=== PATIENT | female | born 1970 | race Caucasian/White ===

== ENCOUNTER → 2019-01-15 | Outpatient (CLI) | payer BC ==
--- NOTE | 2019-01-19 16:36 | RADIOLOGY IMAGING REPORT ---
[facility] PATIENT NAME: ISAEL LARES : [id number] MR: [id number] V: [id number] EXAM DATE: [id number] ORDERING PHYSICIAN: LOTTIE LOWERY TECHNOLOGIST: Carmen Cohn PROCEDURE: BILATERAL DIGITAL SCREENING MAMMOGRAM WITH CAD ASSISTED INTERPRETATION & 3D TOMOSYNTHESIS REASON FOR STUDY: Screening FAMILY HISTORY OF BREAST CANCER: None BREAST PROCEDURES/TREATMENTS: None COMPARISON: None VIEWS OBTAINED: Bilateral 2D & 3D full field CC & MLO projections BREAST DENSITY: hetero MAMMOGRAM FINDINGS: There is a focal asymmetry in the lateral portion of the Right breast on the Right CC view best appreciated on tomographic slice #32 for which spot compression view is recommended. IMPRESSION: BIRADS 0: Incomplete, need additional imaging evaluation. Additional views of the Right breast recommended & possibly Right breast Ultrasound depending upon the additional imaging findings. DIAGNOSTIC CATEGORY 0--INCOMPLETE: NEED ADDITIONAL IMAGING EVALUATION. RECOMMENDATIONS: ADDITIONAL MAMMOGRAPHIC VIEWS REQUIRED: RIGHT BREAST. Dictated by: Kristin Arthur M.D. on 01/15/2019 at 15:16 Transcribed by: BRIAN on 01/16/2019 at 11:04 Approved by: Weston Tinoco on 01/19/2019 at 16:34 [facility]
== END ==
LOC: MAMO 10:48
PROVIDERS: ATTEND Nurse Practitioner Psychiatric/Mental Health
DX: R92.2 Inconclusive mammogram (principal)
CPT/HCPCS: 77063; 77067

== ENCOUNTER → 2019-01-16 | Outpatient (CLI) | payer BC ==
--- NOTE | 2019-01-16 11:37 | RADIOLOGY IMAGING REPORT ---
FACILITY: [facility] PATIENT NAME: Minna Cesar : 1970 MR: [id number] V: [id number] EXAM DATE: ORDERING PHYSICIAN: LOTTIE LOWERY TECHNOLOGIST: Location: [facility] Patient: Minna Cesar : 1970 Visit/Account:[id number] Date of Sevice: 01/16/2019 Chest 2 views: HISTORY: Chest pain and shortness of breath. COMPARISON: None. FINDINGS: Frontal and lateral chest: Cardiomediastinal silhouette is within normal limits. There is no infiltrate or pleural effusion. No pneumothorax. Pulmonary vasculature is normal. Osseous structures are unremarkable for age. IMPRESSION: No evidence of acute cardiopulmonary abnormality. Report Dictated By: Luz Marina Anna MD at 01/16/2019 11:31 AM Report E-Signed By: Luz Marina Anna MD at 01/16/2019 11:32 AM WSN:[email or web address]
== END ==
LOC: RAD 10:31
PROVIDERS: ATTEND Nurse Practitioner Psychiatric/Mental Health
DX: R07.9 Chest pain, unspecified (principal)
CPT/HCPCS: 71046

== ENCOUNTER 2019-03-04 00:59 | Observation (INO) | payer BC ==
[2019-03-04] VITALS (12 sets, daily range): BP systolic 72–124; BP diastolic 42–75
[~2019-03-04] VITALS: Ht 162.6 cm; Wt 109.8 kg
[~2019-03-04 00:59] MED LIST: ACET-2146 PO; FENO160T11 PO; FEXO180T87 PO; FLUT16SP19 NS; LACT1CAP6 PO; MULT1CAP59 PO; OMEG-11 PO; RANI-54 PO; SERT-181 PO
[2019-03-04] MEDS ORDERED: PROPOFOL EMUL(*) 10MG/ML 20 ML 20 ML ONE (07:47)
[2019-03-04] MEDS ORDERED: METOCLOPRAMIDE 10 MG/2 ML SDV ONE (07:47)
[2019-03-04] MEDS ORDERED: LIDOCAINE MPF 1% 5 ML VIAL ONE (07:47)
[2019-03-04] MEDS ORDERED: DEXAMETHASONE SOD 4 MG/ML VIAL ONE (07:47)
[2019-03-04] MEDS ORDERED: ROCURONIUM BROM 10 MG/ML 10 ML ONE (07:47)
[2019-03-04] MEDS ORDERED: ONDANSETRON 4 MG/2 ML VIAL ONE (07:47)
[2019-03-04] MEDS ORDERED: SUGAMMADEX SOD 200 MG/2 ML SDV ONE (07:52)
[2019-03-04] MEDS ORDERED: fentaNYL CITR 250 MCG/5 ML AMP ONE (07:53)
[2019-03-04] MEDS ORDERED: cefOXitin/DEX(*) 2GM/50ML PREM 50 ML IVPB ONE (08:05)
[2019-03-04] MEDS: NORMOSOL R SOLN(*) 1000 ML BAG 1,000 ML IV PRN ×2 (08:15→14:00)
[2019-03-04 08:52] LABS: PLATELET COUNT, AUTOMATED 266 K/uL (150-450)
[2019-03-04] MEDS ORDERED: MIDAZOLAM 2 MG/2 ML VIAL IVP PRN (09:30)
[2019-03-04] MEDS ORDERED: LIDOCAINE/SOD BICARB 8.4% SYR ID ONE (09:30)
[2019-03-04] MEDS ORDERED: MANNITOL* (20%)100 GM/500ML BG 500 ML IVPB ONE (09:40)
[2019-03-04] MEDS ORDERED: ROPIVACAINE 0.2% 20 ML VIAL ONE (09:41)
[2019-03-04] MEDS ORDERED: NS(*) 0.9% 250 ML BAG 250 ML ONE (09:41)
[2019-03-04] MEDS ORDERED: ESTROGENS CONJ VAG CREAM 30 GM TUBE PV ONE (09:41)
[2019-03-04] MEDS ORDERED: ACETAMINOPHEN(*)1000 MG/100 ML 100 ML IVPB ONE (09:43)
[2019-03-04] MEDS ORDERED: VASOPRESSIN 20 UNIT/ML VIAL ONE (09:44)
[2019-03-04] MEDS ORDERED: fentaNYL CITR 100 MCG/2 ML AMP ONE ×3 (12:10→13:43)
[2019-03-04] MEDS ORDERED: ONDANSETRON 4 MG/2 ML VIAL IV PRN (13:25)
[2019-03-04] MEDS ORDERED: ACETAMINOPHEN 325 MG TAB PO PRN (13:25)
[2019-03-04] MEDS ORDERED: PROMETHAZINE 25 MG/ML 1 ML AMP IVP PRN (13:25)
[2019-03-04] MEDS ORDERED: DOCU240C67 PO (13:25)
[2019-03-04] MEDS ORDERED: SIMETHICONE 80 MG CHEW CHEW PRN (13:25)
[2019-03-04] MEDS ORDERED: HYDROmorphone HCL 2 MG TAB PO PRN (13:25)
[2019-03-04] MEDS ORDERED: IBUP800T37 PO (13:25)
[2019-03-04] MEDS ORDERED: OXYC-865 PO (13:25)
[2019-03-04] MEDS ORDERED: INFLUENZA VIRUS VAC 0.5ML SYR IM ONE (13:25)
[2019-03-04] MEDS ORDERED: ESTRADIOL 0.1 MG/24 HR TDSY TD SCH (13:30)
--- NOTE | 2019-03-04 13:47 | Post Operative Note ---
Operative Note - CARDIOTHORACIC ICU RN Operative Day Date: Mar 04, 2019 Time: 13:45 Physicians Surgeon: Ladan Patient Centered Care Specialist: Sherie Sims Anesthesia: GETA Diagnosis Pre-Op Diagnosis: Menorrhagia Metrorrhagia Ovarian cyst rectocele YUDI Post-Op Diagnosis: Menorrhagia Metrorrhagia Right hydatid cyst of morgagni rectocele YUDI Procedure Procedure(s): RATLH BSO Cystectomy Posterior colporrhaphy Cystoscopy TO sling Specimen Removed:(Maybe N/A): uterus, tubes, ovaries, cyst Complications: [id number] Fluids Fluids: 1900 ml Estimated Blood Loss: 200 ml Dictated Date OP Note Dictated: Mar 04, 2019 Time OP Note Dictated: 13:47 Copies to: MAURIZIO ARROYO MD ; MAURIZIO ARROYO MD Mar 04, 2019 13:47
[2019-03-04] MEDS ORDERED: KETOROLAC 30 MG/ML VIAL ONE (14:24)
--- NOTE | 2019-03-04 15:07 | OPERATIVE REPORT 1 ---
EVENT DATE: March 04, 2019 SURGEON: Melvin Pickering MD ANESTHESIOLOGIST: Jeferson Yeboah MD ANESTHESIA: General endotracheal. SEMICONDUCTOR TESTING GROUP LEADER: YOLANDA Flores PREOPERATIVE DIAGNOSES 1. Excessive infrequent menstruation with irregular cycle. 2. Menorrhagia. 3. Unspecified ovarian cyst. 4. Stress urinary incontinence. 5. Rectocele. 6. Perineocele. POSTOPERATIVE DIAGNOSES 1. Excessive infrequent menstruation with irregular cycle. 2. Menorrhagia. 3. Right adnexal hydatid cyst of Morgagni. 4. Stress urinary incontinence. 5. Rectocele. 6. Endometriosis. PROCEDURES PERFORMED 1. Robotic-assisted total laparoscopic hysterectomy. 2. Bilateral salpingo-oophorectomy. 3. Modified Short's culdoplasty. 4. Diagnostic cystoscopy. 5. Posterior colporrhaphy. 6. Perineoplasty. 7. Transobturator mid urethropexy. ESTIMATED BLOOD LOSS 200 cc. IV FLUIDS 1900 cc IV crystalloid. FINDINGS Upon inspecting the pelvis, the uterus was positioned anterior to a large cyst below. The left ovary and tube were visible and appeared normal. Therefore, this was deemed to be a right adnexal cyst. It was not clear, however, whether it was an ovarian cyst or otherwise. Although it had the initial appearance of a paratubal cyst or a hydatid cyst of Morgagni. It had a thin translucent surface membrane that was clearly visible in the pelvis. Therefore, a needle aspirator was used to drain the cyst and after the cyst had been drained it was clearly evident it was a hydatid cyst of Morgagni and the right ovary appeared normal. There was endometriosis noted in the posterior cul-de-sac. DESCRIPTION OF PROCEDURE Patient was brought to the operating room with a working IV, placed in the dorsal supine position on the operating table. She was placed under general endotracheal anesthesia and moved to the dorsal lithotomy position. She was then prepped and draped in the usual sterile fashion. A weighted speculum was placed in the vagina. The cervix was visualized and grasped on the anterior lip with a single-tooth tenaculum. It was sounded to a depth of 14 cm and the cervix was dilated in order to accommodate a large VCare uterine manipulator. It was passed through the cervix into the uterus, bulb inflated and secured and the VCare cup was sutured to the cervix. The NuMo cup was approximated against the VCare cup and secured. Herbert catheter was placed in the bladder to dependent drainage. The legs were brought back to the supine position and gloves were changed. We proceeded laparoscopically by measuring above the target anatomy, which ended up being 3 cm cephalad to the umbilicus. This area was marked, infiltrated with 0.2% Naropin and an 8 mm stab incision was made. Veress needle was passed through this incision into the abdomen and pneumoperitoneum was created to an intraabdominal pressure of 20 mmHg. This was reduced to 15 mmHg. Once all ports were had been placed, the Veress needle was removed. An 8 mm bladeless trocar was passed through this incision into the abdomen while elevating and stabilizing the anterior abdominal wall. Four additional ports were placed, two left lateral and two right lateral to the umbilical port as follows, all spaced 8 cm apart and under similar technique and under direct visualization. There was an rehabilitation assistant port left lateral and a robotic port followed by two robotic ports to the right of the umbilical port. The patient was moved to the steep Trendelenburg position and bowel was swept out of the abdomen with a blunt grasper. The abdomen and pelvis were surveyed with the above findings noted. The needle aspirator was connected to suction, passed through the most left lateral port to the cystic mass and punctured into the cystic mass. A clear fluid was suctioned out and continued to be suctioned out for a total volume of 800 cc before the cyst had been completely evacuated. The needle was then removed. Further manipulation revealed the right ovary normal in appearance and this paratubal cyst beneath the right tube. Therefore, all instruments were removed and the robot was brought overlying the patient. The umbilical port was docked. The camera was placed and a targeting procedure was completed. All additional arms were docked and instruments were attached and brought into the abdomen under direct visualization with the scope. Once this setup had been completed, I scrubbed out and presented to the console for the procedure, which proceeded as follows: The right tube and ovary was put on elevated and medial stretch, exposing the IP ligament. The ureter was observed well below this area and, therefore, the IP ligament was doubly cauterized and transected with a vessel sealer. Continued dissection through the pelvic connection of the right adnexa up to the uteroovarian ligament was performed. The round ligament was then cauterized and transected at this point entering the broad ligament, which was in the anterior and posterior leaflets. The anterior leaflet was dissected over the cervix and the VCare cup to the contralateral side. Further dissection and skeletonization of the uterine vessels were performed anteriorly followed by posterior skeletonization by taking the peritoneum down to the uterosacral ligament. Once the vessels were visible, the uterine vasculature was cauterized in a perpendicular fashion x2 and transected with the vessel sealer. Parallel bites along the lateral uterus was then performed down to and overlying the VCare cup. The same procedure was followed on the contralateral side in likewise fashion, elevating and exposing the IP ligament, which was doubly cauterized and transected with the vessel sealer, dissecting the left adnexa away from its pelvic connection up to the uterosacral ligament and cauterizing and transecting the round ligament entering the broad. Broad ligament was then into the anterior and posterior leaflets and the anterior dissection was completed followed by posterior skeletonization of the uterine vasculature. Uterine vessels on the left were then cauterized perpendicularly x2 and transected followed by parallel bites along the lateral uterus down to and overlying the VCare cup. An anterior colpotomy was performed, identifying the VCare cup and this was extended circumferentially through the uterosacral ligaments bilaterally to the contralateral side. This released the uterus and it was removed with both adnexa intact through the vagina. A few capillary bleeders were cauterized and then instruments were changed for suturing. An 0 Vicryl was then used to suture ligate the right angle to the ipsilateral uterosacral ligament in a [id number] fashion. Same procedure was followed on the contralateral side. The vaginal cuff was then repaired using 2-0 V-Loc stitch in a running nonlocking fashion with an excellent result. There was hemostasis and excellent reapproximation of the skin edges achieved. No visible complications. No bleeders. All instruments were removed from the abdomen and pneumoperitoneum was suctioned out. Skin incisions were repaired with 4-0 Monocryl simple subdermal and covered with Dermabond skin adhesive. The legs were brought back to the supine position and I scrubbed back into the procedure. A weighted speculum was placed in the vagina and the vaginal repair was inspected and found to be intact. Therefore, the rectocele was inspected and there was significant obstetrical scarring at the vaginal introitus with significant dimpling of this tissue at the vaginal opening inwards towards the perineum. There is some redundant tissue on the perineal body extending to the anus and a midline rectocele was prominent. The area was demarcated and infiltrated with a dilute Pitressin solution and a yaron-shaped resection of the vaginal introital skin followed by the perineal skin and up to the vaginal mucosa was performed. A linear incision along the length of the defect was also performed and then careful dissection laterally to the endopelvic fascia was performed to expose the rectocele defect. The perineal body also was transected in order to be rebuilt later. A running pursestring stitch was then performed on the rectocele defect in order to reduce its size followed by Meghan plication stitches along its entire length, which significantly reduced the defect. A finger was inserted rectally and I palpated for further defects and several site specific repairs were performed where there was palpable weakness in the pelvis fascia. Once completed, gloves were changed. Excess vaginal tissue was trimmed away. The repair was then performed with 2-0 Vicryl in a running locking stitch up to the vaginal introitus. The remaining perineal body was rebuilt by suture ligating the scar tissue laterally towards the midline in order to rebuild the perineal body and to have taken away the dimpling noted in that location. Once that had been adequately performed, the remaining repair was performed as is typical for a second-degree obstetrical repair with excellent closure of the skin edges, excellent strength and integrity and width of the perineal body was achieved. At this point, a weighted speculum was again placed in the vagina. The legs were brought back down to a 45-degree angle and we prepared for the sling procedure. The transobturator fossa was palpable extracorporeally and samaniego were made on the groin at the level of the clitoris. The mid urethra was palpated with the assistance of the Herbert and grasped between two Allis clamps. A linear incision was made along the length of the mid urethra and then dissected laterally with the assistance of a tenotomy and scissor angled 45- degrees towards the transobturator fossa. This was performed on both sides, having adequately dissected laterally from the mid urethra. A finger was then passed to further bluntly dissect to the transobturator membrane, which was palpable beneath on the posterior side. A sling hook was then passed first vertically through the groin to the transobturator membrane and then rotated to a 45-degree angle to complete its travel to the vagina, where the incision had been performed. The sling was attached to this hook and drawn back through, leaving the blue introducer intracorporeal. Same procedure was followed on the contralateral side. Herbert catheter was removed. Diagnostic cystoscopy was performed. The entire bladder was inspected and found to be without injury. Both ureters exhibited excellent urine jets. Therefore, the cystoscopy was completed. Herbert catheter was replaced and sling material was grasped at the midline with a Luisito clamp, taking approximately 1 cm of looped sling. This was approximated against the mid urethra while slack was taken out on both sides. Once this had been adequately spaced, the sleeves of the sling material were removed and the remaining sling material was trimmed at the groin. I was easily able to pass a curved Potts scissor beneath the sling material. Therefore, the vaginal mucosa was repaired with a 2-0 Vicryl in a running locking stitch. There was excellent hemostasis upon completion. The vagina was irrigated and suctioned dry. The entire vagina was packed with a Kerlix sponge moistened with Premarin cream. Puncture incisions were covered with Dermabond skin adhesive. She tolerated the procedure well. Sponge, lap, needle and instrument counts were all correct x3. She was taken to recovery in stable condition. LORI
[2019-03-04] MEDS: oxyCODON/ACET (*)5/325MG (CII) 1 TAB TAB PO PRN ×2 (16:04→23:33)
[2019-03-04] MEDS: DLR(*) 1000 ML BAG 1,000 ML IV PRN ×2 (16:06→21:30)
[2019-03-04] MEDS: KETOROLAC 30 MG/ML VIAL IVP SCH (18:49)
[2019-03-04] MEDS: RANITIDINE HCL 150 MG TAB PO SCH (21:00)
[2019-03-04] MEDS ORDERED: ZOLPIDEM TARTRATE 10 MG TAB PO PRN (21:00)
[2019-03-04] MEDS: DOCUSATE CALCIUM 240 MG CAP PO SCH (21:01)
[2019-03-04] MEDS: FAMOTIDINE 20 MG TAB PO SCH (21:01)
[2019-03-05] MEDS: KETOROLAC 30 MG/ML VIAL IVP SCH (01:48)
[2019-03-05 03:51] VITALS: BP 89/51
[2019-03-05 06:22] LABS: PLATELET COUNT, AUTOMATED 200 K/uL (150-450)
[2019-03-05 08:15] VITALS: BP 85/58
[2019-03-05] MEDS: FAMOTIDINE 20 MG TAB PO SCH (08:33)
[2019-03-05] MEDS: RANITIDINE HCL 150 MG TAB PO SCH (08:33)
[2019-03-05] MEDS: oxyCODON/ACET (*)5/325MG (CII) 1 TAB TAB PO PRN (08:33)
[2019-03-05] MEDS ORDERED: SERTRALINE HCL 50 MG TAB PO SCH (09:00)
[2019-03-05] MEDS: DOCUSATE CALCIUM 240 MG CAP PO SCH (09:00)
[2019-03-05] MEDS ORDERED: FEXOFENADINE HCL 60 MG TAB PO SCH (09:00)
[2019-03-05] MEDS ORDERED: FENOFIBRATE,MICRON 145 MG TAB PO SCH (09:00)
[2019-03-05 10:14] VITALS: Ht 162.6 cm; Wt 109.8 kg
[2019-03-05 11:38] VITALS: BP 108/50
[2019-03-05] MEDS ORDERED: ESTR1PAT99 TD (12:28)
[2019-03-05] MEDS ORDERED: IBUPROFEN 800 MG TAB PO PRN (13:00)
--- NOTE | 2019-03-05 13:06 | OB/GYN Progress Note ---
OB Subjective Progress Notes Subjective Doing well POD #1 s/p RATLH, posterior colporrhaphy and TO sling. Needing some O2 this morning. Scant vaginal bleeding packing and lee still present during visit. Tolerating PO, no nausea/vomiting. Not passing flatus yet. Dip in Hgb 12 to 9 post-op, tolerating. GI: NEG Nausea, NEG Vomiting, NEG Flatus : Vaginal Bleeding, Scant Pain: Moderate, Tolerating PO Pain Meds OB Objective Physical Exam Vital Signs Date Time Temp Pulse Resp B/P (MAP) Pulse Ox O2 Delivery O2 Flow Rate FiO2 03/05/19 11:38 98.5 78 17 108/50 (69) 93 Room Air 03/05/19 08:15 1.0 Intake and Output 03/05/19 07:03 Intake Total 5848 ml Output Total 3150 ml Balance 2698 ml Intake Oral 1850 ml IV Total 1900 ml Other 2098 ml Output Urine Total 2950 ml Estimated Blood Loss 200 ml General Appearance: Alert/Awake/No Acute Distress Neurological: No Gross deficits Cardiovascular: Normal Rhythm & Peripheral Pulses Respiratory: No Respiratory Distress Abdomen: Other (Hypoactive bowel sounds. Soft, non-distended. 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 Will remove Lee this morning and rate second stream, nursing will check post void residual. If stream is >50% of previous and post void is <150cc will d/c home today. Her pain is well c ontrolled, discussed post-op care. Follow-up with Dr. Pickering in 2 weeks. GOLDY FELIX Mar 05, 2019 13:06
--- NOTE | 2019-03-05 13:11 | OB/GYN Discharge Summary ---
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 Her pain is well controlled, discussed post-op care. Climara patch started for hormone replacement. Follow-up with Dr. Pickering in 2 weeks. Lates Vital Signs Vital Signs Date Time Temp Pulse Resp B/P (MAP) Pulse Ox O2 Delivery O2 Flow Rate FiO2 03/05/19 11:38 98.5 78 17 108/50 (69) 93 Room Air 03/05/19 08:15 1.0 Weight (Pounds): 242 Result Diagram: 03/05/19 0544 Condition: Improved Discharge: Home, Self Snf Meds Active Scripts Oxycodone Hcl/Acetaminophen (PERCOCET 5-325 MG TABLET) 1 Each Tablet, 1 EACH PO Q4-6H PRN for PAIN, #20 TAB 0 Refills TAKE 1 TABLET NEEDED FOR PAIN - NO CLOSER THAN EVERY 4-6 HOURS. Prov:GOLDY FELIX 03/04/19 Reported Medications Ranitidine Hcl (ZANTAC) 150 Mg Tablet, 300 MG PO BID, TAB 02/26/19 Lactobacillus Combination No.4 (PROBIOTIC) 1 Each Capsule, 1 EACH PO QDAY, CAPSULE 02/26/19 Acetaminophen 500 Mg Tab (ACETAMINOPHEN EXTRA STRENGTH) 500 Mg Tablet, 500 MG PO Q4-6H PRN for PAIN, TAB 02/26/19 Multivitamin (MULTIVITAMINS) 1 Each Capsule, 1 EACH PO QDAY, CAPSULE 02/26/19 Fexofenadine Hcl (FEXOFENADINE HCL) 180 Mg Tablet, 180 MG PO QDAY 02/26/19 [place]-3 Fatty Acids/Fish Oil (FISH OIL 1,000 MG CAPSULE) 1 Each Capsule, 1 EACH PO QDAY, CAPSULE 02/26/19 Fluticasone Prop 50 Mcg Ns (FLONASE 50 MCG NS) 16 Gm [place].susp, 1 SPRAY NS BID, BOT 02/26/19 Fenofibrate (FENOFIBRATE) 160 Mg Tablet, 160 MG PO QDAY 02/26/19 Sertraline Hcl (SERTRALINE HCL) 100 Mg Tablet, 1 TAB PO QDAY, TAB 02/26/19 Follow up with: Dr. Pickering [phone] Follow up in: 2 wks PO Discharge Diet: As Tolerates Discharge Activity: No Heavy Lifting x 6 wks, Pelvic Rest Special Instructions: No driving on narcotic pain medication. GOLDY FELIX Mar 05, 2019 13:11
== END 2019-03-05 13:09 | disposition home or self-care (01) ==
LOC: OR 00:59 → PED 15:30
PROVIDERS: ADMIT Obstetrics & Gynecology; ATTEND Obstetrics & Gynecology
DX: N92.1 Excessive and frequent menstruation with irregular cycle (principal); N81.81 Perineocele; N83.8 Other noninflammatory disorders of ovary, fallopian tube and broad ligament; N39.3 Stress incontinence (female) (male); N81.6 Rectocele
CPT/HCPCS: 36415; 51990; 58571; 84703; 85025; 88307; 90471; C1771; G0378; J0131; J0694; J1100; J1885; J2001; J2250; J2405; J2704; J2765; J2795; J3010; J3490; J7050; S2900